=== PATIENT | female | born 1995 | race Caucasian/White ===

== ENCOUNTER 2023-10-26 15:39 | Emergency (ER) | payer BC, SELFPAY ==
[2023-10-26 15:46] VITALS: BP 123/77
[2023-10-26 16:35] LABS: HCG, Serum Qualitative Screen Negative
[2023-10-26 16:38] LABS: ALT (SGPT) 14 U/L (0-35); AST (SGOT) 24 U/L (14-36); Albumin 4.4 g/dl (3.5-5.0); Alkaline Phosphatase 45 U/L (38-126); Blood Urea Nitrogen 11 mg/dl (7-17); Calcium 9.3 mg/dl (8.4-10.2); Carbon Dioxide 28 mmol/L (22-30); Chloride 102 mmol/L (98-107); Glucose 98 mg/dl (70-99); Lipase 40 U/L (23-300); Potassium 4.1 mmol/L (3.5-5.1); Sodium 140 mmol/L (135-145); Total Bilirubin 1.4 mg/dl (0.2-1.3); Total Protein 6.6 g/dl (6.3-8.2); eGFR > 60.00
[2023-10-26 16:52] LABS: % Basophils 0.8 % (0-2); % Immature Granulocytes 0.3 % (0-0.5); % Lymphocytes 40.8 % (20.5-51.1); % Monocytes 9.5 % (1.7-9.3); % Neutrophils 41.6 % (42.2-75.2); Absolute Eosinophils 0.3 10^3/uL (0-0.7); Absolute Lymphocytes 1.6 10^3/uL (1.2-3.4); Absolute Monocytes 0.4 10^3/uL (0.1-0.6); Absolute Neutrophils 1.7 10^3/uL (1.4-6.5); Hemoglobin 10.7 g/dL (12.0-16.0); Mean Corp Hgb Conc. 36.9 g/dL (33.0-37.0); Mean Corpuscular Hgb 29.7 pg (27.0-31.0); Mean Corpuscular Volume 80.6 fL (81.0-99.0); Mean Platelet Volume 9.9 fL (7.4-10.4); Nucleated Red Blood Cells % 0 %; Platelet Count 146 10^3/uL (130-400); Red Cell Dist. Width 11.6 % (11.5-14.5)
--- NOTE | 2023-10-26 19:25 | ED.GENMED ---
History of Present Illness
General
Chief Complaint: Fatigue
Time Seen by Provider: 10/26/23 18:30
History of Present Illness
History of Present Illness:
28-year-old female with history of chronic urinary retention requiring self cath presents to the emergency department for evaluation of numerous symptoms in about been ongoing for the past 6 to 7 days. She reports she initially developed leg
weakness that has intermittently waxed and waned over the past week. She did have diarrhea initially and her primary care physician felt as though it was likely a viral syndrome. States she is having trouble exercising and walking upstairs due to
the weakness and feels that her legs become fatigued easily. She also notes bilateral petechial rashes to the axilla as well as the upper buttock, no itching. Intermittent headaches and pelvic pain as well. She did have fevers earlier this week
with a maximum temperature of 100. States that she had a urinalysis done by her primary care physician earlier this week that was negative and a subsequent urine culture reportedly resulted yesterday that was also negative. Denies any vision
changes or chest pain. She also states to me that due to chronic lower extremity nerve pain she had an EMG of the lower extremities done at [facility] the day before the onset of her leg weakness and states to me that this was reportedly normal
but she does not have a formal report of her findings yet
Review of Systems
Review of Systems
Allergies reviewed?: Yes
All Other Systems: ROS reviewed and negative except as documented in HPI and ROS
Phy Exam
Physical Exam
Physical Exam:
GEN: Well appearing, NAD, WDWN
HEENT: Oral mucosa moist, no scleral icterus, no nasal congestion, neck range of motion is free and unrestricted with no meningismus
Cardiac: Regular rate and rhythm, no murmurs
Lung: No respiratory distress, no tachypnea
MSK: No gross deformity or injuries
Skin: Good color, no pallor or jaundice, no rashes
Neuro: AO x3; CN II-XII grossly intact. BUE strength 5/5 in all koo, sensation intact and symmetric. BLE strength 5/5 in all koo, sensation intact and symmetric. Patellar and brachioradialis reflexes are 2+ and symmetric bilaterally, no
hyperreflexia or clonus
Psych: Calm, cooperative
Course
Orders/Labs/Results
Orders:
Orders
10/26/23 15:54
EKG [Electrocardiogram (*1)] Urgent
Reason for Study: Fatigue / Weakness
10/26/23 15:55
EKG- Treatment ONCE
Test Result ONCE
10/26/23 16:12
CBC/With Diff [Complete Blood Count/With Diff] Urgent
CMP [Comprehensive Metabolic Panel] Urgent
HCG, Serum Qualitative Screen Urgent
Lipase Urgent
10/26/23 19:14
Ketorolac [Toradol] 15 mg IV NOW STA
Metoclopramide [Reglan] 10 mg IV NOW STA
10/26/23 19:52
Lyme Progressive Urgent
Monotest Urgent
Abnormal Lab Results
10/26/23
16:12
WBC 4.0 L 10^3/uL
(4.8-10.8)
RBC 3.60 L 10^6/uL
(4.20-5.40)
Hgb 10.7 L g/dL
(12.0-16.0)
Hct 29.0 L %
(37.0-47.0)
MCV 80.6 L fL
(81.0-99.0)
Neutrophils % 41.6 L %
(42.2-75.2)
Monocytes % 9.5 H %
(1.7-9.3)
Eosinophils % 7.0 H %
(0-6)
Creatinine 0.5 L mg/dL
(0.6-1.0)
Total Bilirubin 1.4 H mg/dl
(0.2-1.3)
10/26/23 16:12
10/26/23 16:12
Vital Signs
Initial and Last Documented VS:
Initial Vital Signs
Temp Pulse Resp BP Pulse Ox
97.9 F 97 18 123/77 98
10/26/23 15:46 10/26/23 15:46 10/26/23 15:46 10/26/23 15:46 10/26/23 15:46
Last Documented Vital Signs
Temp Pulse Resp BP Pulse Ox
97.9 F 65 18 117/65 98
10/26/23 15:46 10/26/23 19:52 10/26/23 19:52 10/26/23 19:52 10/26/23 19:52
MDM/Problems Addressed
MDM/Problems Addressed:
Cause of her symptoms is unclear. The presence of mild leukopenia and monocytosis would suggest a potential viral syndrome, monoscreen was negative. She does have slightly elevated T. bili without transaminitis thus this is likely not indicative
of an acute process. Lyme screen pending. She is anemic but I do not feel this is causing her symptoms. She is able to ambulate without ataxia or visible difficulty and she has no objective lower extremity weakness or hyperreflexia suggesting
inflammatory polyneuropathy. She is overall clinically well-appearing. Reportedly had a negative urine culture earlier this week. Likely self-limited viral syndrome, do not see any indication for lumbar puncture to rule out Guillain-Cm� or
mosquito borne meningitis encephalitis. Educated the patient on further supportive care and advised continue primary care follow-up, return to emergency department any worsening leg weakness
*Critical Care Note
Total Time (30-74mins, 75-104mins- exclusive of procedures): Not Applicable
ED Attending Note
-
Portions of this chart may have been created with voice recognition software.� Occasional wrong word or��sound alike� substitutions may have occurred due to the inherent limitations of voice recognition software.
Discharge Plan
Departure
Patient Disposition: Home (Routine Discharge)
Date of Disposition: 10/26/23
Time of Disposition: 20:45
Patient with high blood pressure during this ER visit?: No
Discharge Problem:
Fatigue, Bilateral leg weakness
Instructions: Generalized Weakness (DC)
Referrals:
Rupa Browne DO [Family Provider] -
Fede Thapa MD [Active] -
Activity Restrictions/Additional Instructions:
The cause of your symptoms is unclear at this time
We discussed that you do not have any objective leg weakness or reflex deficits that would be concerning for a neurologic condition such as Guillain-Cm�, particular given your reportedly normal EMG test from last week
We discussed that there is a possibility of a viral or mosquito borne illness however you do not have signs or symptoms of meningitis that would warrant a lumbar puncture
A Lyme test is pending and will return within 3 to 4 days, you will receive a phone call if antibiotics are needed
Your lab tests suggest a potential viral illness given your mildly low white blood cell count as well as elevated monocyte count (this is a type of white blood cell that response to viral infections, fungal infections, allergic reactions)
Your electrolyte tests were normal and your kidney function is normal
You may be mildly anemic however it is not significant enough to where I would suspect this was causing her symptoms particular given the associated fever earlier this week
If your symptoms do not improve after 14 days or worsens or you have difficulty walking please return to the emergency department
Interventions
Interventions:
*Risk Screen - Suicide Last Done: 10/26/23 19:59
*General Assessment Last Done: 10/26/23 19:59
*Neglect/Abuse Screening Last Done: 10/26/23 19:59
ED- Fall Risk Assessment Last Done: 10/26/23 19:59
Discharge Date and Time
Print Language: SRI LANKAN
[2023-10-26 19:52] VITALS: BP 117/65
[2023-10-26 20:16] LABS: Monotest Negative (Negative)
[2023-10-26 20:57] VITALS: BP 116/70
[2023-10-30 14:45] LABS: Lyme Antibody Screen, EIA Negative (Negative)
== END 2023-10-26 21:04 | disposition home or self-care (01) ==
LOC: EMR 15:39
PROVIDERS: Physician Assistant; EMERGENCY PHYSICIAN Emergency Medicine; FAMILY PHYSICIAN Family Medicine
DX: R53.83 Other fatigue (principal); R53.1 Weakness
CPT/HCPCS: 99284; 80053; 83690; 84703; 85025; 86308; 86618; 93005